=== PATIENT | male | born 1945 | race Caucasian/White ===

== ENCOUNTER 2017-11-23 18:47 | Emergency (ER) | payer OTHER, BC ==
[~2017-11-23] VITALS: Ht 188 cm; Wt 93.0 kg
[2017-11-23 19:03] VITALS: Ht 188 cm; Wt 93.0 kg
[2017-11-23 20:12] VITALS: BP 160/89
== END 2017-11-23 20:12 | disposition home or self-care (01) ==
LOC: ED 18:47
DX: S01.01XA Laceration without foreign body of scalp, initial encounter (principal); S16.1XXA Strain of muscle, fascia and tendon at neck level, initial encounter; I10 Essential (primary) hypertension; E11.9 Type 2 diabetes mellitus without complications; W22.8XXA Striking against or struck by other objects, initial encounter; Y93.89 Activity, other specified; Y92.89 Other specified places as the place of occurrence of the external cause; Y99.8 Other external cause status
CPT/HCPCS: 90715

== ENCOUNTER 2018-10-07 20:50 | Inpatient (IN) | payer OTHER, BC ==
[~2018-10-07] VITALS: Ht 185.4 cm; Wt 92.1 kg
[2018-10-07 21:01] VITALS: Ht 185.4 cm; Wt 92.1 kg
[2018-10-07 21:31] LABS: BASOPHIL % 0.2 % (0-2); PLATELET COUNT 469 x10^3mcL (130-400); RED CELL DISTRIBUTION WIDTH 16.3 % (11.5-14.5)
[2018-10-07 21:33] LABS: CALCIUM 8.7 mg/dL (8.5-10.1); CARBON DIOXIDE 26.7 mmol/L (21-32); CHLORIDE SERUM 101 mmol/L (98-107); CREATININE SERUM 1.1 mg/dL (0.7-1.3); GLUCOSE SERUM 220 mg/dL (74-106); POTASSIUM SERUM 3.4 mmol/L (3.5-5.1); SODIUM SERUM 136 mmol/L (136-145)
[2018-10-07 21:37] LABS: ALKALINE PHOSPHATASE 67 U/L (46-116); ALT/SGPT 38 U/L (16-63); AST/SGOT 26 U/L (15-37); BILIRUBIN TOTAL 0.4 mg/dL (0.20-1.00); LIPASE 103 IU/L (73-393); TOTAL PROTEIN, SERUM 6.5 g/dL (6.4-8.2)
[2018-10-07 21:42] LABS: ALBUMIN 2.5 g/dL (3.4-5.0)
[2018-10-07] MEDS ORDERED: ACTOS30 M1 PO (22:58)
[2018-10-07] MEDS ORDERED: DOCUSATE SODIU250 MG PO (23:00)
[2018-10-07] MEDS ORDERED: DUL10S RC (23:02)
[2018-10-07] MEDS ORDERED: LOV40I SQ (23:02)
[2018-10-07] MEDS ORDERED: NEURONTIN400 MG PO (23:03)
[2018-10-07] MEDS ORDERED: GLIMEPIRIDE4 M1 PO (23:04)
[2018-10-07] MEDS ORDERED: RELION HUMUL100 U/M2 (23:04)
[2018-10-07] MEDS ORDERED: NORCO1 TA2 PO (23:05)
[2018-10-07] MEDS ORDERED: LANTUS100 U/ML SC (23:06)
[2018-10-07] MEDS ORDERED: LOTREL1 CA5 PO (23:06)
[2018-10-07] MEDS ORDERED: GOOD NEIGH1200 MG/15 PO (23:07)
[2018-10-07] MEDS ORDERED: SEN-O-TABS8.6 MG PO (23:07)
[2018-10-07] MEDS ORDERED: JANUVIA100 M1 PO (23:08)
[2018-10-08 00:02] VITALS: BP 132/59
[2018-10-08 00:47] LABS: MAGNESIUM 1.9 mg/dL (1.8-2.4); PHOSPHOROUS 3.5 mg/dL (2.5-4.9)
[2018-10-08 00:48] LABS: CHOLESTEROL/HDL RATIO 3.7
[2018-10-08 05:41] VITALS: BP 128/68
[2018-10-08 06:18] LABS: microscopic required? NO
[2018-10-08 06:51] LABS: UA SPECIFIC GRAVITY 1.025 (1.005-1.035); urine erythrocyte NEGATIVE (NEGATIVE)
[2018-10-08 07:05] LABS: CALCIUM 8.5 mg/dL (8.5-10.1); CHLORIDE SERUM 104 mmol/L (98-107); GLUCOSE SERUM 118 mg/dL (74-106); MAGNESIUM 1.9 mg/dL (1.8-2.4); PHOSPHOROUS 3.2 mg/dL (2.5-4.9); POTASSIUM SERUM 3.6 mmol/L (3.5-5.1); SODIUM SERUM 138 mmol/L (136-145)
[2018-10-08 07:08] LABS: AMPHETAMINE QUAL UR NONE DETECTED (See below)
[2018-10-08 08:19] VITALS: BP 165/67
[2018-10-08 10:07] LABS: BASOPHIL % 1.4 % (0-2)
[2018-10-08 10:12] LABS: PLATELET COUNT 447 x10^3mcL (130-400); RED CELL DISTRIBUTION WIDTH 15.2 % (11.5-14.5)
[2018-10-08 12:35] VITALS: BP 106/58
[2018-10-08 15:50] VITALS: BP 150/69
[2018-10-08 20:38] VITALS: BP 150/64
[2018-10-09 05:46] VITALS: BP 158/72
[2018-10-09 06:41] LABS: CARBON DIOXIDE 28.1 mmol/L (21-32); CHLORIDE SERUM 106 mmol/L (98-107); CREATININE SERUM 0.8 mg/dL (0.7-1.3); GLUCOSE SERUM 114 mg/dL (74-106); MAGNESIUM 2.1 mg/dL (1.8-2.4); PHOSPHOROUS 2.7 mg/dL (2.5-4.9); POTASSIUM SERUM 3.3 mmol/L (3.5-5.1); SODIUM SERUM 138 mmol/L (136-145)
[2018-10-09 06:49] LABS: BASOPHIL % 0.4 % (0-2)
[2018-10-09 07:04] LABS: PLATELET COUNT 423 x10^3mcL (130-400); RED CELL DISTRIBUTION WIDTH 16.2 % (11.5-14.5)
[2018-10-09 08:03] VITALS: BP 141/61
[2018-10-09 15:50] VITALS: BP 130/55
[2018-10-10 05:47] VITALS: BP 155/70
[2018-10-10 09:02] LABS: BASOPHIL % 0.3 % (0-2)
[2018-10-10 09:04] LABS: PLATELET COUNT 453 x10^3mcL (130-400)
[2018-10-10 09:46] LABS: CALCIUM 8.1 mg/dL (8.5-10.1); CARBON DIOXIDE 28.8 mmol/L (21-32); CHLORIDE SERUM 102 mmol/L (98-107); CREATININE SERUM 0.8 mg/dL (0.7-1.3); GLUCOSE SERUM 128 mg/dL (74-106); PHOSPHOROUS 2.8 mg/dL (2.5-4.9); POTASSIUM SERUM 3.2 mmol/L (3.5-5.1); SODIUM SERUM 138 mmol/L (136-145)
[2018-10-10 10:01] VITALS: BP 142/61
[2018-10-10] MEDS ORDERED: GOOD SENSE OMEP20 MG PO (11:54)
[2018-10-10] MEDS ORDERED: CARAFATE1 GM/10 ML PO (11:54)
[2018-10-10 12:14] VITALS: BP 142/61
== END 2018-10-10 14:20 | DRG 377 ==
LOC: ED 20:50 → MU 22:27
PROVIDERS: Emergency Medicine; Family Medicine; Internal Medicine Gastroenterology
PROC: 0DB68ZX Excision of Stomach, Via Natural or Artificial Opening Endoscopic, Diagnostic (ICD-10-PCS; principal; 2018-10-08 10:00)
DX: K25.0 Acute gastric ulcer with hemorrhage (principal); N17.0 Acute kidney failure with tubular necrosis; E43 Unspecified severe protein-calorie malnutrition; D68.69 Other thrombophilia; R65.10 Systemic inflammatory response syndrome (SIRS) of non-infectious origin without acute organ dysfunction; K20.8 Other esophagitis; K31.84 Gastroparesis; T40.2X5A Adverse effect of other opioids, initial encounter; D50.0 Iron deficiency anemia secondary to blood loss (chronic); E11.65 Type 2 diabetes mellitus with hyperglycemia; I10 Essential (primary) hypertension; M81.0 Age-related osteoporosis without current pathological fracture; Z68.24 Body mass index [BMI] 24.0-24.9, adult; Z87.891 Personal history of nicotine dependence; Z79.4 Long term (current) use of insulin; Z79.84 Long term (current) use of oral hypoglycemic drugs
CPT/HCPCS: 43235; 82962; 83880; C9113; J1200; J1610; J2250; J2270; J2310; J2405; J2765; J2916; J3010; J3490; J7030; J8597; Q0092